=== PATIENT | female | born 1955 | race Caucasian/White ===

== ENCOUNTER 2016-11-15 14:40 | Emergency (ER) | payer OTHER ==
[~2016-11-15] VITALS: Ht 157.5 cm; Wt 63.5 kg
--- NOTE | ~2016-11-15 | CR127 ---
[facility] A Service of [facility] & [facility] RADIOLOGY TEXT RESULTS PATIENT: AFTAB CHACKO LOCATION: SED : 57 UNIT #: [id number] AGE: [address]: BEATRIZ HANDLEY SEX: F ORDER DR: [id number] [address] [address] [id number] MR#: [id number] Acc #: [id number] NAME: AFTAB CHACKO : 1955 SEX: F STUDY DATE/TIME: 11/15/2016 15:30 UNIT: SED ROOM: STUDY DESCRIPTION: CR Foot Complete Min 3 View Rt Attending Physician: Beatriz Handley Ordering Physician: Beatriz Handley Primary Care Physician: Juan J Figueroa M.D. MEDICAL IMAGING REPORT This report is preliminary unless electronic signature is present. EXAM Right foot, 11/15/2016 HISTORY 60-year-old female with right foot pain after stepping off porch today. COMPARISON None FINDINGS Three views of the right foot demonstrate no evidence of acute fracture or dislocation. Mild soft tissue swelling around the midfoot. No ankle effusion. IMPRESSION Mild soft tissue swelling around the midfoot. No evidence of acute fracture or dislocation. Dictated by... Torres Cortés M.D. THIS IS AN ELECTRONICALLY VERIFIED REPORT Torres Cortés M.D. at 11/17/2016 10:49 AM Mark TD: 11/16/2016 16:43 JOB #: [id number] MEDICAL IMAGING REPORT Page 1 of 1
[~2016-11-15 14:40] MED LIST: MULTI BETIC PO; VITAL-D RX TABL1 TAB PO
== END 2016-11-15 17:32 | disposition home or self-care (01) ==
LOC: SED 14:40
DX: S93.601A Unspecified sprain of right foot, initial encounter (principal); Z88.8 Allergy status to other drugs, medicaments and biological substances; X50.1XXA Overexertion from prolonged static or awkward postures, initial encounter
CPT/HCPCS: 29540; 73630; 99283